=== PATIENT | male | born 1980 | race Caucasian/White ===

== ENCOUNTER 2017-08-02 04:27 | Observation (INO) | payer SELFPAY ==
[2017-08-02] VITALS (12 sets, daily range): BP systolic 134–165; BP diastolic 69–98; PULSE 62–89; RESP 14–18; TEMP 36.7–36.9; O2SAT 93–100; BMI 34.1; BMI 32.5
--- NOTE | 2017-08-02 04:38 | EKG12_ITS ---
Test Reason : CP Blood Pressure : / mmHG Vent. Rate : 074 BPM Atrial Rate : 074 BPM P-R Int : 164 ms QRS Dur : 096 ms QT Int : 396 ms P-R-T Axes : 053 058 017 degrees QTc Int : 439 ms Normal sinus rhythm with sinus arrhythmia Nonspecific T wave abnormality Abnormal ECG Confirmed by SHONA BLANKENSHIP, TIMOTEO ([id number]), food editor DANIELE TOWNSEND ([id number]) on 08/04/2017 1:59:02 PM Referred By: BRITTANEY Confirmed By:TIMOTEO NAGEL MD
--- NOTE | 2017-08-02 04:39 | RAD_ITS ---
STUDY: X-RAY CHEST REASON FOR EXAM: Male, 37 years old. Chest tightness TECHNIQUE: 2 views COMPARISON: None. FINDINGS: The lungs are clear and expanded. There is no demonstrated pleural abnormality. Normal size heart. Normal mediastinum and patricio. Normal visualized pulmonary arteries. Normal visualized aortic arch and descending thoracic aorta. Normal visualized thoracic spine. Normal visualized ribs, clavicles, and shoulders. There is no demonstrated abnormality of the visualized soft tissue structures of the upper abdomen. RAD/Chest PA and Lateral IMPRESSION: Normal x-ray examination of the chest. No acute findings in the lungs Electronically Signed: Cr Brennan, at 5:44 EDT Tel , Service support ,
--- NOTE | 2017-08-02 04:39 | ED.VISSUMM ---
- ER Visit Summary Date of Service: 08/02/17 Chief Complaint: [Chest pain] History of Present Illness: The patient is a 37 M [who presents the emergency department with chest pain. He describes as a tightness in his left chest tingling in his left arm. It started at 3 AM this morning. He was sweating a little short of breath. No dizziness. At its worst it was a 4 out of 10 currently as a 2 out of 10. It is not worse with movement. For the past couple of days he has been getting some tightness up his anterior neck into his jaw. He has been having exertional shortness of breath for some time. He has no past medical history he does not smoke he has no family history of early cardiac disease. He has no PE or DVT risk factors] Physical Examination: [] Blood pressure 165/98 other vitals within normal limits WN WD NAD PERRL EOMI MMM NECK supple and nontender, no masses RRR no murmur rub or gallop, no peripheral edema, symmetric radial pulses CTAB no respiratory distress chest nontender ABDOMEN is soft and nontender, normal bowel sounds, no distension, no rebound or guarding SKIN is warm and dry no rashes Alert and Oriented x3, CN II-XII in tact, no motor or sensory deficits, gait normal No lymphadenopathy Test Results: [] Emergency Department Course and Treatment: [EKG is sinus he has T-wave inversions in V3 V4 and V5. There is no prior for comparison. Screening blood work is unremarkable except for d-dimer which is exactly on the upper limits of normal. Because of the patient's young age EKG changes concerning story for chest pain without clear explanation CT a of the chest was ordered. Patient will be admitted to the hospital for cardiac rule out. Treatment Plan: [] Disposition: [Discharge] Impression: [1. Chest pain] This note was generated with [employer] dictation software. It may contain incorrect words, spelling, and punctuation that were not noted in review of the chart prior to signing ED Disposition - Plan for ED Patient: Chief Complaint: Chest Pain Referrals: Unruly Diaz MD [Primary Care Provider] -
[2017-08-02] MEDS: Aspirin 81 MG TAB.CHEW 162 MG PO (04:43)
[2017-08-02 05:13] LABS: Absolute Lymphocyte Count 2.18 X10^3/ul (0.83-4.51); Absolute Neutrophil Count 4.7 X10^3/uL (2.0-7.7); Basophil# 0.03 X10^3/uL; Basophil% 0.4 % (0-1); Eosinophil# 0.09 X10^3/uL; Eosinophils% 1.2 % (0-5); Hematocrit 43.5 % (40-54); Hemoglobin 15.3 g/dl (13.0-16.5); Lymphocyte # 2.18 X10^3/ul (4.0); Lymphocyte % 28.9 % (19-41); Mean Corp Hgb Conc 35.2 g/gl (32-36); Mean Corpuscular Hgb 30.5 pg (27.0-32.0); Mean Corpuscular Volume 86.8 fL (80-94); Mean Platelet Vol. 11.2 fl (6.2-12.0); Monocyte# 0.56 X10^3/uL; Monocyte% 7.4 % (0-10); Neutrophil # 4.66 X10^3/uL (2.7-7.7); Neutrophil % 61.8 % (47-70); Platelet Count 226 K/mm3 (150-450); RBC Distribution Width CV 12.7 % (11.6-14.6); RBC Distribution Width SD 40.6 fl (35.1-43.9); Red Blood Count 5.01 M/mm3 (4.6-6.2); White Blood Count 7.5 K/mm3 (4.4-11.0)
[2017-08-02 05:14] LABS: POSITIVE COUNT NO; POSITIVE DIFFERENTIAL NO; POSITIVE MORPHOLOGY NO
[2017-08-02 05:24] LABS: Anion Gap 9 (5-15); BUN 13 mg/dL (7-18); BUN/Creat Ratio 12.4 RATIO (10-20); Calcium,Total 8.1 mg/dL (8.5-10.1); Chloride 105 mmol/L (98-107); Creatinine, Serum 1.05 mg/dL (0.70-1.30); D-Dimer Quantitative (DVT/PE) 0.49 FEU/ug/m (0.27-0.49); EST Glomerular Filtration Rate 84 mL/min (>60); Est Glom Filt Rate - Afr Amer 102 mL/min (>60); Estimated Creatinine Clearance 117.11 ml/min; Glucose 108 mg/dL (74-106); Potassium 3.7 mmol/L (3.5-5.1); Sodium Level 140 mmol/L (136-145)
--- NOTE | 2017-08-02 05:32 | CT_ITS ---
STUDY: CTA CHEST REASON FOR EXAM: Male, 37 years old. Chest tightness RADIATION DOSAGE (If Supplied By Facility): CTDIvol = ( 16.45 ) mGy, DLP = ( 819.40 ) mGycm TECHNIQUE: The examination was performed with the intravenous administration of 100ML ml of Isovue 370 contrast material. Post-processing of the angiographic images was performed, with multiplanar reformation and 3D reconstruction. Individualized dose optimization techniques were used for this CT. COMPARISON: None. FINDINGS: : TRACHEA, THYROID, ESOPHAGUS: No tracheomalacia,stricture or wall thickening. Thyroid and esophagus are normal CARDIOVASCULAR SYSTEM:The thoracic aorta is normal with no aneurysm, dissection or developmental anomalies. The pulmonary trunk and the left and right pulmonary arteries and their lobar and segmental branches do not show any abnormal and persistent filling defects in them. There is therefore no evidence of pulmonary embolism. The heart is normal. There are no venous anomalies SAIRA AND LYMPH NODES: No hilar masses and no mediastinal, hilar, axillary or supraclavicular adenopathy LUNGS, LOW-ATTENUATION: No traction bronchiectasis, honeycombing,emphysema, lung cysts or cavitations LUNGS, HIGH ATTENUATION: No nodules/masses, ground glass opacities/consolidations or increased interstitial markings LUNGS, MOSAIC/CRAZY PAVING: Not evident PLEURA AND CHEST WALL: No plural effusions, pneumothoraces,rib fractures or any osteolytic/osteoblastic changes . The soft tissue chest wall including the breasts are normal UPPER ABDOMEN: Unremarkable . CT/CTA Chest W/WO Contrast IMPRESSION: Normal CTA chest examination, without a demonstrated pulmonary embolism or arterial dissection. No acute findings in the lungs Electronically Signed: Cr Brennan, at 6:46 EDT Tel , Service support ,
--- NOTE | 2017-08-02 05:53 | HP.PCM_ITS ---
Problem List (1) Chest pain Status: Acute Qualifiers: Chest pain type: unspecified Qualified Code(s): R07.9 - Chest pain, unspecified (2) Elevated BP without diagnosis of hypertension Status: Acute History of Present Illness Date of Admission: 08/02/17 Chief Complaint: Chest pain The patient is a 37 y/o M w/ no marked PMHx aside heavy Caffeine intake w/ 5-6 60 ounce Pepsi/Coke who presents to the [facility] ED on 08/02/17 with history of ongoing exertional dyspnea x 2 months with episode of BL neck discomfort on Monday which resolved with now onset of left sided chest tightness described as 2/10 upon awakening at ~ 3 am secondary to his toddler awakening him w/ associated mild dyspnea and paresthesias to the LUE. In the ED workup included T 98.5, heart rate 67, BP 159/85, respiratory rate 16, 97% on 2 L, unremarkable CBC, unremarkable BMP aside glucose 108, EKG w/ T wave inversions V3-V5, trop normal x 1, CXR without acute findings, pending CTPA at evaluation per ED. In the ED patient administered ASA, NG, NS. Past Medical History Allergies No Known Allergies Allergy (Verified 08/02/17 04:39) Home Medications: Ambulatory Orders Medication Instructions Recorded NK [NK] 08/02/17 Surgical History: no surgical history Psychiatric History: No pertinent psych hx Lives: Spouse/ Significant Other, With Family Smoking Status: Never smoker Tobacco Use: Non-smoker Alcohol: None Drugs: None - *Family History Maternal History Items: - - Patient notes a maternal family history of hypertension. Paternal History Items: - - Patient notes a paternal family history of arrhythmia, hypertension. Review of Systems Constitutional: Reports: Fatigue. Denies: Chills, Fever, Weight Change HEENT: Denies: Head Aches, Sinus Congestion, Sinus Drainage Cardiovascular: Reports: Chest Pain, Chest Tightness. Denies: Chest Pressure, Edema, Heaviness, Light Headedness, Orthopnea, Palpitations, Syncope Respiratory: Reports: Shortness of Breath, Shortness of breath upon exertion. Denies: Cough, Shortness of breath at rest, Sputum production Gastrointestinal: Denies: Abdominal Pain, Nausea, Vomiting Genitourinary: Denies: Dysuria Musculoskeletal: Denies: Joint Pain, Joint Tenderness Skin: Denies: Rash, Wounds Neurological: Denies: Numbness, Tingling, Focal weakness Psychiatric: Denies: Anxiety, Depression, Homicidal Ideations, Suicidal Ideations Hematologic/ Lymphatic: Denies: Easy Bruising, Easy Bleeding VTE Information - Inpt Only VTE Present on Admission: No VTE Mechan Device Prophylaxis: SCD's VTE Pharm Prophylaxis ordered?: Yes Patient Problems: Active and Suspected Problems Chest pain (Acute) Elevated BP without diagnosis of hypertension (Acute) Subjective: Seated upright in the ED bed, NAD, notes still tightness, mild. Objective: Physical Examination: General: awake, alert, oriented x 3 and cooperative, seated upright in the ED bed in no apparent distress. Skin: normal color, turgor, no icterus, cyanosis. HEENT: AT/NC, EOMI, PERRLA, MMM, no carotid bruits or JVD noted. Lungs: CTA bilaterally, moderate effort, mild decrease BL bases, no rales, ronchi or wheezing. Heart: regular rate and rhythm; no gallop, rub audible, no reproducible discomfort. Abdomen: soft, NTTP, ND, normal BS, no HSM. Extremities: no cyanosis, clubbing, or edema. Neurological: patient awake, alert, oriented x 3; cognitive function intact; pupils equally reactive to light and accomodation; cranial nerves II-XII grossly normal, moving all 4 extremities, no focal deficits, strength preserved. Psychiatric: affect appears normal, no acute evidence of depressive or anxiety feelings. - Physical Exam Vital Signs Temp Pulse Resp BP Pulse Ox 98.5 F 70 16 142/88 H 97 08/02/17 04:28 08/02/17 05:00 08/02/17 05:00 08/02/17 05:00 08/02/17 05:00 Oxygen Flow Rate (L/min) 2 Oxygen Delivery Method Nasal Cannula Weight: 280 lb 10.375 oz Body Mass Index (BMI) 34.1 Laboratory Tests Past 24 Hrs 08/02/17 08/02/17 08/02/17 04:30 04:30 04:30 WBC 7.5 RBC 5.01 Hgb 15.3 Hct 43.5 MCV 86.8 MCH 30.5 MCHC 35.2 RDW 12.7 RDW Differential 40.6 Plt Count 226 MPV 11.2 Immature Gran % (Auto) 0.300 Neut % (Auto) 61.8 Lymph % (Auto) 28.9 [place] % (Auto) 7.4 Eos % (Auto) 1.2 Baso % (Auto) 0.4 Absolute Neuts (auto) 4.7 Absolute Lymphs (auto) 2.18 Total Counted Not Reportable D-Dimer Quant (PE/DVT) 0.49 Sodium 140 Potassium 3.7 Chloride 105 Carbon Dioxide 26.0 Anion Gap 9 BUN 13 Creatinine 1.05 Estim Creat Clear Calc 117.11 Est GFR (MDRD) Af Amer 102 Est GFR (MDRD) Non-Af 84 BUN/Creatinine Ratio 12.4 Glucose 108 H Calcium 8.1 L Troponin I < 0.02 Assessment/Plan Active and Suspected Problems Chest pain (Acute) Elevated BP without diagnosis of hypertension (Acute) The patient is a 37 y/o M w/ no marked PMHx aside heavy Caffeine intake w/ 5-6 60 ounce Pepsi/Coke who presents to the [facility] ED on 08/02/17 with history of ongoing exertional dyspnea x 2 months with episode of BL neck discomfort on Monday which resolved with now onset of left sided chest tightness described as 2/10 upon awakening at ~ 3 am secondary to his toddler awakening him w/ associated mild dyspnea and paresthesias to the LUE. (1) Chest Pain: Unremarkable CBC, unremarkable BMP aside glucose 108, EKG w/ T wave inversions V3-V5, trop normal x 1, CXR without acute findings, pending CTPA at evaluation per ED. Will admit to PCU, place on a monitored bed to assure no acute myocardial infarction with serial cardiac enzymes and EKGs. If enzymes remain unremarkable will obtain cardiac stress ECHO give EKG changes, possibly today if able. NPO status w/ IVFs, FLP this AM, mag pending, added low dose BB given elevated BP upon presentation but if elevated pressure normalizes may need to discontinue. ASA, NG, morphine. Awaiting CTPA and if negative then continue w/ plan as noted. If positive d/c stress testing and initiate anticoagulation; however, D-dimer not markedly elevated thus no expecting positive result. (2) Elevated BP without HTN: BP mildly elevated above goal upon ED presentation , continue to trend, low dose BB added given acute chest pain presentation, if BP normalizes and unremarkable cardiac evaluation discontinue, PRN hydralazine. (3) Excessive caffeine consumption: Encouraged decreased caffeine, soda pop daily consumption. (4) GERD: Famotidine. (5) Mildly elevated glucose: Glucose admission mildly elevated, HgbA1c pending. (6) DVT Prophylaxis: SCDs, lovenox. Code Visit OBSV E&M: 22510 Initial observation care L3
[2017-08-02 07:18] LABS: Magnesium 2.3 mg/dL (1.6-2.6)
[2017-08-02 07:24] LABS: Cholesterol 164 mg/dL (200); High Density Lipoprotein 20 mg/dL; Triglycerides 823 mg/dL
--- NOTE | 2017-08-02 08:17 | STEWCON_ITS ---
Reason For Study: Chest Pain Stress Results Protocol: Javi Protocol Maximum Predicted HR: 182 bpm Target HR: 155 bpm% Max imum Predicted HR: 106 % DurationHeart Rate Stage (mm:ss) (bpm) BPCom ment Baseline 67 138/76 No Chest Pain; Definity 0.3 ML Used Javi Protocol Stage I 3:00 12 9 130/70No Chest Pain Javi Protocol Stage II 3:00 14 1 162/70No Chest Pain Javi Protocol Stage III 3:00 17 1 168/64No Chest Pain; Mild Dyspnea Javi Protocol Stage IV 3:00 19 3 180/70No Chest Pain; Moderate Dyspnea Recovery 118 140/7 8No Chest Pain; No Dyspnea Stress Duration: 12:00 mm:ss Maximum Stress HR: 193 bpmME TS: 13 Baseline Echocardiogram Findings The estimated ejection fraction is 65 %. Stress Echo Wall motion Data Resting WMIntermediate WMStress WM Resting Wall Motion Wall Motion Stress No regional wall motion No regional wall motion abnormalities noted. abnormalities noted. EKG Data The baseline ECG demonstrates normal sinus rhythm with at rate of _ beats per minute. The patient exercised according to the regular Javi protocol for a total duration of 12:00. The maximum heart rate attained was 218 beats per minute. This was 119% of maximum predicted heart rate. The patient exercised into stage 5 of the Javi protocol. During stress, there were no ST or T wave changes noted to suggest ischemia. No arrhythmias noted. No clinical angina was noted. Interpretation Summary The study was technically difficult. Contrast injection was performed. The estimated ejection fraction is 65 %. Normal adequate treadmill echocardiogram. Negative for ischemia by EKG and echocardiographic criteria. No anginal symptoms noted. No arrhythmias noted. Appropriate blood pressure response to exercise. Average exercise capacity for age. Test terminated due to dyspnea. Final LVEF of 75%. Decreased sensitivity due to poor echo windows requiring Definity agent. No complications. Ordering Physician: Emi Lugo Referring Physician: Erik Ashby MD Performed By: Heidi Zavala RDCS, RVT
[2017-08-02] MEDS: 0.9% Normal Saline 1,000 ML 100 ML IV (08:24)
[2017-08-02] MEDS: Famotidine 20 MG Tablet PO (10:20)
[2017-08-02] MEDS: Carvedilol 3.125 MG TABLET PO (10:20)
[2017-08-02] MEDS: 0.9% NaCl Peripheral Flush Adult/Peds IV (10:20)
--- NOTE | 2017-08-02 11:35 | PCM.DC ---
- Discharge Diagnoses Current Active Problems: Current Active and Chronic Problems Chest pain (Acute) Elevated BP without diagnosis of hypertension (Acute) You will use the following diet at home:: Cardiac - Low saturated fat diet Discharge Activity: Return to Normal Activity Allergies/Adverse Reactions: Allergies No Known Allergies Allergy (Verified 08/02/17 04:39) Medications to take at Discharge Fenofibrate [Tricor] 48 mg PO DAILY #30 tab 08/02/17 Lisinopril [Prinivil] 5 mg PO DAILY #30 tab 08/02/17 The following prescriptions were given: Fenofibrate [Tricor] 48 mg PO DAILY #30 tab Lisinopril [Prinivil] 5 mg PO DAILY #30 tab Primary Care Physician: Unruly Diaz MD [Primary Care Provider] - Please follow up with your Primary Care Physician in: in 2 week
--- NOTE | 2017-08-02 11:36 | DS.PCM_ITS ---
Discharge Date and Diagnosis Date of Admission: 08/02/17 Date of Discharge: 08/02/17 - Primary Discharge Diagnosis Active and Suspected Problems Atypical chest pain most probably musculoskeletal pain. Acute coronary syndrome ruled out. New onset hypertension. Hypertriglyceridemia and dyslipidemia Hospital Course and Treatment Imaging Results: 08/02/17 08:17 Stress Test Echo W/Contrast [ECHO] Routine Summary of Care Provided: The patient is a 37 year old M with obesity grade 2, BMI 34.1 kg/meter square, AV caffeine intake was admitted with exertional dyspnea ongoing for 2 months along with left-sided chest pain. He described chest pain as chest tightness. His blood pressure was elevated 159/85 in ER. He was admitted in PCU. CTPA was done and is normal. Chest x-ray without acute finding. EKG noted ST wave inversions in V3 through V5. Patient had serial troponin enzymes was negative. Stress echocardiogram was done and patient had no arrhythmia, chest pain or ST-T changes during treadmill stress test. Patient had appropriate blood pressure response to exercise capacity for his age. EF noted 65%. I will shows HDL 20 and hypertriglyceridemia 823. I tried to convince the patient to start on TriCor and lisinopril 10 mg for hypertriglyceridemia and hypertension respectively but patient is reluctant and wants to talk to PCP and try for exercise and diet first. I recommended his triglyceride level is too high to control with diet and exercise and needs drug treatment. Prescriptions for lisinopril and TriCor given. Discharge medication reconciliation done. Follow-up instructions completed Laboratory Results 08/02/17 04:30: WBC 7.5, RBC 5.01, Hgb 15.3, Hct 43.5, MCV 86.8, MCH 30.5, MCHC 35.2, RDW 12.7, RDW Differential 40.6, Plt Count 226, MPV 11.2, Immature Gran % (Auto) 0.300, Neut % (Auto) 61.8, Lymph % (Auto) 28.9, [place] % (Auto) 7.4, Eos % (Auto) 1.2, Baso % (Auto) 0.4, Absolute Neuts (auto) 4.7, Absolute Lymphs (auto ) 2.18, Total Counted Not Reportable 08/02/17 04:30: Sodium 140, Potassium 3.7, Chloride 105, Carbon Dioxide 26.0, Anion Gap 9, BUN 13, Creatinine 1.05, Estim Creat Clear Calc 117.11, Est GFR ( MDRD) Af Amer 102, Est GFR (MDRD) Non-Af 84, BUN/Creatinine Ratio 12.4, Glucose 108 H, Calcium 8.1 L, Troponin I < 0.02 08/02/17 04:30: D-Dimer Quant (PE/DVT) 0.49 08/02/17 04:30: Triglycerides 823 H, Cholesterol 164, LDL Cholesterol TNP, VLDL Cholesterol TNP, HDL Cholesterol 20 L 08/02/17 04:30: Hemoglobin A1c 5.0 08/02/17 04:30: Magnesium 2.3 08/02/17 08:00: Troponin I < 0.015 08/02/17 10:12: Troponin I < 0.015 Clinical Impression(s) from Imaging Studies Chest X-Ray 08/02/17 04:39 IMPRESSION: Normal x-ray examination of the chest. No acute findings in the lungs Chest CTA 08/02/17 05:32 IMPRESSION: Normal CTA chest examination, without a demonstrated pulmonary embolism or arterial dissection. No acute findings in the lungs Discharge Activity: Return to Normal Activity Home Medications: Medications to take at Discharge Fenofibrate [Tricor] 48 mg PO DAILY #30 tab 08/02/17 Lisinopril [Prinivil] 5 mg PO DAILY #30 tab 08/02/17 Following Prescrptions Were Given to Patient: Fenofibrate [Tricor] 48 mg PO DAILY #30 tab Lisinopril [Prinivil] 5 mg PO DAILY #30 tab Primary Care Physician: Unruly Diaz MD [Primary Care Provider] - Please follow up with your Primary Care Physician in: in 2 week Medical Necessity - Tobacco Use Smoking Status: Never smoker Tobacco Use: Non-smoker Meaningful Use Info Meaningful Use Diagnoses (Choose all that apply): None applicable Code Visit OBSV E&M: 97499 Observ/hosp same date L3
== END 2017-08-02 11:35 | disposition home or self-care (01) ==
LOC: ED 05:20 → PCU 06:38
PROVIDERS: Admitting Provider Family Medicine; Emergency Provider Emergency Medicine; Visit Provider Internal Medicine
DX: R07.89 Other chest pain (principal); E78.5 Hyperlipidemia, unspecified; E66.9 Obesity, unspecified; Z68.34 Body mass index [BMI] 34.0-34.9, adult; Z71.3 Dietary counseling and surveillance; R06.00 Dyspnea, unspecified; I10 Essential (primary) hypertension; M54.2 Cervicalgia; R20.2 Paresthesia of skin
CPT/HCPCS: 36415; 71046; 71275; 80048; 80061; 83036; 83735; 84484; 85025; 85379; 93005; 93017; 93350; 96360; 96361; 99218; 99285; J7030; Q9957; Q9967; A4216; C8928; G0378